=== PATIENT | male | born 1985 | race African-American/Black ===

== ENCOUNTER 2022-02-17 21:28 | Emergency (ER) | payer SELFPAY ==
[2022-02-17 22:54] LABS: #Eosinphils 0.4 thou/uL (0.0-0.7); #Neutrophils 5.6 thou/uL (1.40-6.50); %Basophils 0.4 % (0.0-1.0); %Eosinophils 4.1 % (0.0-10.0); %Lymphocytes 30.2 % (21.0-51.0); %Monocytes 9.7 % (0.0-10.0); %Neutrophils 55.7 % (42.0-75.0); Hemoglobin 14.7 g/dL (14.0-18.0); Mean Corpuscular HGB CONC 32.5 g/dL (32.0-36.0); Mean Corpuscular Hemoglobin 29.5 pg (27.0-31.0); Mean Corpuscular Volume 90.7 fL (78.0-98.0); Mean Platelet Volume 8.2 fL (7.4-10.4); Platelet Count 239 thou/uL (130-400); RBC Distribution Width 11.9 % (11.5-14.5)
[2022-02-17] MEDS ORDERED: Ketorolac Tromethamine 30 MG/ML VIAL ONE (23:00)
[2022-02-17 23:13] LABS: ALT (SGPT) 17 U/L (8-55); AST (SGOT) 15 U/L (5-34); Albumin 4.2 g/dL (3.5-5.0); Alkaline Phosphatase 69 U/L (40-110); Anion Gap 13 mmol/L (10-20); BUN (Urea Nitrogen) 12 mg/dL (8.9-20.6); Bilirubin, Total 0.5 mg/dL (0.2-1.2); Calc. Creatinine Clearance 0 mL/min (70-130); Calcium 9.1 mg/dL (7.8-10.44); Carbon Dioxide 27 mmol/L (22-29); Chloride 106 mmol/L (98-107); Globulin 3.2 g/dL (2.4-3.5); Glucose 84 mg/dL (70-105); Lipase 35 U/L (8-78); Protein, Total 7.4 g/dL (6.0-8.3); Sodium 142 mmol/L (136-145)
== END 2022-02-17 23:52 | disposition home or self-care (01) ==
LOC: ERS 21:28
DX: S29.011A Strain of muscle and tendon of front wall of thorax, initial encounter (principal); I10 Essential (primary) hypertension; F17.210 Nicotine dependence, cigarettes, uncomplicated; X58.XXXA Exposure to other specified factors, initial encounter
CPT/HCPCS: 71045; 80053; 83690; 84484; 85025; 93005; 96374; J1885

== ENCOUNTER 2022-08-04 21:44 | Emergency (ER) | payer SELFPAY ==
[2022-08-04] MEDS ORDERED: cefTRIAXone\\ROCEPHIN 1 GM VIAL ONE (23:16)
[2022-08-04] MEDS ORDERED: Ketorolac Tromethamine 30 MG/ML VIAL ONE (23:16)
[2022-08-04] MEDS ORDERED: Dexamethasone 10 MG/ML VIAL ONE (23:16)
[2022-08-04] MEDS ORDERED: Lidocaine 1% MPF 2 ML VIAL ONE (23:17)
[2022-08-04 23:46] LABS: SARS-CoV-2 NAA Rapid Test Not Detected (NotDetected)
[2022-08-05 00:12] LABS: MONO NEGATIVE CONTROL ZONE White (Negative) (White); MONO POSITIVE CONTROL Pink Line (Positive) (PINK/RED); Mononucleosis NEGATIVE (NEGATIVE)
== END 2022-08-05 00:10 | disposition home or self-care (01) ==
LOC: ERS 21:44
DX: J36 Peritonsillar abscess (principal); I10 Essential (primary) hypertension; F17.210 Nicotine dependence, cigarettes, uncomplicated; Z20.822 Contact with and (suspected) exposure to COVID-19
CPT/HCPCS: 36415; 86308; 87081; 87430; 96372; 99283; J0696; J1100; J1885

== ENCOUNTER 2022-10-23 13:21 | Emergency (ER) | payer SELFPAY ==
[2022-10-23 14:54] LABS: SARS-CoV-2 NAA Rapid Test Not Detected (NotDetected)
== END 2022-10-23 15:29 | disposition home or self-care (01) ==
LOC: ERS 13:21
DX: J06.9 Acute upper respiratory infection, unspecified (principal); Z20.822 Contact with and (suspected) exposure to COVID-19; I10 Essential (primary) hypertension; F17.210 Nicotine dependence, cigarettes, uncomplicated
CPT/HCPCS: 87081; 87430; 99283

== ENCOUNTER 2023-11-04 02:24 | Emergency (ER) | payer SELFPAY ==
[2023-11-04 04:08] LABS: #Basophils 0.1 thou/uL (0.0-0.2); #Eosinphils 0.5 thou/uL (0.0-0.7); #Monocytes 0.9 thou/uL (0.11-0.59); #Neutrophils 6.6 thou/uL (1.40-6.50); %Basophils 0.5 % (0.0-1.0); %Eosinophils 4.1 % (0.0-10.0); %Lymphocytes 28.1 % (21.0-51.0); %Monocytes 7.8 % (0.0-10.0); %Neutrophils 59.2 % (42.0-75.0); Hematocrit 48.2 % (42.0-52.0); Hemoglobin 16.1 g/dL (14.0-18.0); Mean Corpuscular HGB CONC 33.4 g/dL (32.0-36.0); Mean Corpuscular Hemoglobin 28.6 pg (27.0-31.0); Mean Corpuscular Volume 85.6 fl (78.0-98.0); Platelet Count 290 10x3/uL (130-400); RBC Distribution Width 12.4 % (11.5-14.5); Red Blood Cell (RBC) Count 5.63 mill/uL (4.70-6.10); White Blood Cell (WBC) Count 11.2 10x3/uL (4.8-10.8)
[2023-11-04 04:27] LABS: ALT (SGPT) 25 U/L (8-55); AST (SGOT) 19 U/L (5-34); Albumin 4.5 g/dL (3.5-5.0); Alkaline Phosphatase 75 U/L (40-110); Anion Gap 14 mmol/L (10-20); BUN (Urea Nitrogen) 10 mg/dL (8.9-20.6); Bilirubin, Total 0.7 mg/dL (0.2-1.2); Calc. Creatinine Clearance 0 mL/min (70-130); Calcium 9.5 mg/dL (7.8-10.44); Carbon Dioxide 25 mmol/L (22-29); Chloride 106 mmol/L (98-107); Estimated GFR 96; Globulin 3.2 g/dL (2.4-3.5); Glucose 108 mg/dL (70-105); Potassium 4.3 mmol/L (3.5-5.1); Protein, Total 7.7 g/dL (6.0-8.3); Sodium 141 mmol/L (136-145)
[2023-11-04] MEDS ORDERED: Dicyclomine 20 MG TAB ONE ×2 (04:54→04:56)
[2023-11-04] MEDS ORDERED: Ondansetron ODT 4 MG TAB ONE (04:54)
[2023-11-04 05:18] LABS: Bilirubin Negative (Negative); Blood, Urine Negative (Negative); Clarity Clear (Clear); Glucose, Urine (Dipstick) Normal (Negative); Ketone, Urine Negative (Negative); Leukocyte 75 Leu/uL (Negative); Nitrite Negative (Negative); Protein, Urine (Dipstick) 20 mg/dL (Neg-Trace); RBC/HPF 0-3 HPF (0-3); Urobilinogen Normal mg/dL (Less than 2); WBC/HPF 21-50 HPF (0-3); pH, Urine 5.5 (5.0-9.0)
[2023-11-04 05:19] LABS: Bacteria/HPF None Seen HPF (None Seen); CAUTI Indications for Culture Pelvic or flank pain; Squamous Epithelial 0-3 HPF (0-3)
[2023-11-04 05:20] LABS: Urine Culture Reflex Yes Yes
== END 2023-11-04 06:52 | disposition home or self-care (01) ==
LOC: ERS 02:24
DX: A08.4 Viral intestinal infection, unspecified (principal); I11.0 Hypertensive heart disease with heart failure; I50.9 Heart failure, unspecified; F17.210 Nicotine dependence, cigarettes, uncomplicated
CPT/HCPCS: 36415; 80053; 81001; 83690; 85025; 87086; 99284; Q0162

== ENCOUNTER 2024-02-29 04:03 | Emergency (ER) | payer OTHER, SELFPAY ==
[2024-02-29] MEDS ORDERED: Ibuprofen 800 MG TAB ONE (04:51)
== END 2024-02-29 05:59 | disposition home or self-care (01) ==
LOC: ERS 04:03
DX: M75.52 Bursitis of left shoulder (principal); I11.0 Hypertensive heart disease with heart failure; I50.9 Heart failure, unspecified; F17.210 Nicotine dependence, cigarettes, uncomplicated